=== PATIENT | female | born 1950 | race Caucasian/White ===

== ENCOUNTER 2022-04-11 11:49 | Outpatient (CLI) | payer MEDICARE, SELFPAY | END 2022-04-11 11:50 | disposition home or self-care (01) | LOC: AMB 04-21 15:13 | PROVIDERS: Visit Provider Family Medicine | DX: R56.9 Unspecified convulsions (principal); R41.82 Altered mental status, unspecified | CPT/HCPCS: A0425; A0427 ==

== ENCOUNTER 2022-04-14 18:02 | Outpatient (CLI) | payer MEDICARE, SELFPAY | END 2022-04-14 18:03 | disposition home or self-care (01) | LOC: AMB 04-24 16:21 | PROVIDERS: Visit Provider Emergency Medicine Emergency Medical Services | DX: R56.9 Unspecified convulsions (principal) | CPT/HCPCS: A0425; A0427 ==

== ENCOUNTER 2022-06-29 17:44 | Outpatient (CLI) | payer MEDICARE, SELFPAY | END 2022-06-29 17:45 | disposition home or self-care (01) | LOC: AMB 07-13 10:10 | PROVIDERS: Visit Provider Emergency Medicine | DX: G40.909 Epilepsy, unspecified, not intractable, without status epilepticus (principal) | CPT/HCPCS: A0425; A0427 ==

== ENCOUNTER 2022-06-30 12:11 | Outpatient (CLI) | payer MEDICARE, SELFPAY | END 2022-06-30 12:12 | disposition home or self-care (01) | LOC: AMB 07-13 11:33 | PROVIDERS: Visit Provider Family Medicine | DX: G40.909 Epilepsy, unspecified, not intractable, without status epilepticus (principal) | CPT/HCPCS: A0425; A0427 ==

== ENCOUNTER 2022-07-04 09:31 | Outpatient (CLI) | payer MEDICARE, SELFPAY | END 2022-07-04 09:32 | disposition home or self-care (01) | LOC: AMB 08-02 06:45 | PROVIDERS: Visit Provider Family Medicine | DX: G40.909 Epilepsy, unspecified, not intractable, without status epilepticus (principal) | CPT/HCPCS: A0425; A0427 ==

== ENCOUNTER 2022-08-02 20:39 | Outpatient (CLI) | payer MEDICARE, SELFPAY | END 2022-08-02 20:40 | disposition home or self-care (01) | LOC: AMB 08-09 08:51 | PROVIDERS: Visit Provider Family Medicine | DX: R56.9 Unspecified convulsions (principal); R19.7 Diarrhea, unspecified; R11.10 Vomiting, unspecified | CPT/HCPCS: A0425; A0427 ==